=== PATIENT | female | born 1990 | race Two or more races ===

== ENCOUNTER 2022-01-03 15:56 | Emergency (ER) | payer BC ==
[~2022-01-03] VITALS: Ht 162.6 cm; Wt 53.5 kg
--- NOTE | 2022-01-03 16:00 | NUR ---
RECEIVED PT 31 YRS FEMALE CAME FROM HOME C/O FOREIGN BODY ON RT EAR AND PUSH BACK WHWN TRAY IN UC TO GOT OUT TODAY NO BLEEDING NO DAINING
[2022-01-03 16:11] VITALS: BP 118/83
--- NOTE | 2022-01-03 17:20 | NUR ---
IRRATION ON RT EAR DONE BY ER TACH AND SUCCFFLY CAME OUT FOREIGN BODY
[2022-01-03] MEDS ORDERED: NEOM10DR11 RIGHT EAR (17:31)
--- NOTE | 2022-01-03 17:45 | NUR ---
Patient discharged to home in stable condition. Written and verbal after care instructions given. Patient verbalizes understanding of instruction.
== END 2022-01-03 17:59 | disposition home or self-care (01) ==
LOC: ER 16:07
DX: T16.1XXA Foreign body in right ear, initial encounter (principal); S00.411A Abrasion of right ear, initial encounter; X58.XXXA Exposure to other specified factors, initial encounter; Y93.89 Activity, other specified; Y92.89 Other specified places as the place of occurrence of the external cause; Y99.8 Other external cause status